=== PATIENT | female | born 1995 | race Caucasian/White ===

== ENCOUNTER 2020-11-13 09:51 | Outpatient (CLI) | payer MEDICAID, SELFPAY ==
--- NOTE | 2020-11-13 10:06 | US_ITS ---
WS: [id number] EARLY OBSTETRICAL ULTRASOUND (<14 WEEKS). HISTORY: SUPERVISION, NORMAL COMPARISON: None available. Single intrauterine gestational sac is identified. Cardiac activity at 176 BPM. [place]-rump length duane sures 1.7 cm which corresponds to a gestation of 8w1d. Normal-appearing yolk sac and amnion demonstra surjit. No subchorionic hemorrhage. Tiny amount of free fluid in the cul-de-sac. Cervix is closed. Thick-walled LEFT ovarian corpus luteum cyst. Thick wall cyst measures 19 x 18 mm. Negative RIGHT ova ry. US/US OB <=14 wk fetus w transvag IMPRESSION: 1. Single intrauterine gestation of 8 weeks 1 day with an EDC of 06/24/2021. 2. Corpus luteum of within the LEFT ovary.
== END 2020-11-13 09:52 | disposition home or self-care (01) ==
LOC: RAD 09:55
PROVIDERS: PCP Family Medicine; Visit Provider Family Medicine
DX: Z34.81 Encounter for supervision of other normal pregnancy, first trimester (principal); Z3A.08 8 weeks gestation of pregnancy
CPT/HCPCS: 76801; 76817

== ENCOUNTER 2021-01-29 08:44 | Outpatient (CLI) | payer MEDICAID, SELFPAY ==
--- NOTE | 2021-01-29 | US_ITS ---
WS: [id number] ULTRASOUND OB COMPLETE TECHNIQUE: Complete ultrasound. Technically difficult examination. CLINICAL INFORMATION: 20 WK ANATOMY COMPARISON: None. FINDINGS: Cervix measures 3.1 cm Single interuterine gestation is identified with breech presentation. Placenta is anterior. Placenta grade 0. Normal amniotic fluid volume. cardiac activity: 147 BPM. AGA: 19w4d MAHENDRA by ultrasound: 06/21/2021 Estimated weight: 313 g., %. BDP: 4.4 cm = 19w2d HC: 16.3 cm = 19w1d AC: 14.1 cm = 19w3d FEMUR LENGTH: 3.3 cm = 20w3d Anatomic survey: profile not well evaluated. Anatomic survey is otherwise normal. Normal stomach. Kidneys and bladder are normal. Normal 3 vessel cord. Normal 3 vessel cord insertion. Normal 4 chamber heart. Normal spine. Intracranial contents are normal. Normal posterior fossa and cisterna magna. US/US OB >= 14 weeks fetus [id number] IMPRESSION: Technically difficult examination. 1. Single intrauterine with visualized cardiac activity. AGA 19w4d w ith MAHENDRA 06/21/2021. 2. Placenta is anterior. Breech presentation. 3. profile not well evaluated. Anatomic survey otherwise normal. 4. Normal amniotic fluid volume.
== END 2021-01-29 08:45 | disposition home or self-care (01) ==
PROVIDERS: PCP Family Medicine; Visit Provider Nurse Practitioner Family
DX: Z36.89 Encounter for other specified antenatal screening (principal); Z3A.20 20 weeks gestation of pregnancy
CPT/HCPCS: 76805

== ENCOUNTER 2021-04-26 17:10 | Outpatient (CLI) | payer MEDICAID, SELFPAY ==
[2021-04-26 17:30] VITALS: BMI 36.2
[2021-04-26 17:31] VITALS: BP 124/89; PULSE 85
[2021-04-26 17:52] VITALS: BP 126/87; PULSE 86
[2021-04-26 18:12] VITALS: BP 119/73; PULSE 82
[2021-04-26 18:40] VITALS: BP 119/73; PULSE 82; RESP 18
== END 2021-04-26 18:30 | disposition home or self-care (01) ==
LOC: OPOB 17:17 → OBGYN 17:22
PROVIDERS: PCP Family Medicine; Visit Provider Family Medicine
DX: O99.891 Other specified diseases and conditions complicating pregnancy (principal); R10.9 Unspecified abdominal pain
CPT/HCPCS: 59025; 99211

== ENCOUNTER 2021-05-24 10:07 | Outpatient (CLI) | payer MEDICAID, SELFPAY ==
--- NOTE | 2021-05-24 10:19 | US_ITS ---
WS: [id number] ULTRASOUND OB LIMITED TECHNIQUE: Limited ultrasound examination of the fetus. CLINICAL INFORMATION: BREECH PRESENTATION/SUPERVISION NORMAL COMPARISON: January 29, 2021 FINDINGS: Cervix measures 3.1 cm. Single interuterine gestation. presentation is breech Placental location is anterior. Placenta grade: 1 heart rate 150 BPM. KEV 10.5 CM. US[place] [id number] IMPRESSION: 1. Cervix is long and closed measuring 3.1 cm. 2. Single intrauterine gestation with breech presentation. Placenta is anterio r. 3. KEV 10.5 cm greater than the fifth and below the median for gestational age .
== END 2021-05-24 10:08 | disposition home or self-care (01) ==
LOC: RAD 10:10
PROVIDERS: PCP Family Medicine; Visit Provider Family Medicine
DX: O32.1XX0 Maternal care for breech presentation, not applicable or unspecified (principal)
CPT/HCPCS: 76816

== ENCOUNTER 2021-05-25 03:46 | Inpatient (IN) | payer MEDICAID, SELFPAY ==
[2021-05-25] VITALS (21 sets, daily range): BP systolic 112–151; BP diastolic 56–94; PULSE 64–79; RESP 15–18; TEMP 36.2–37.9; O2SAT 93–99; BMI 37.8
--- NOTE | 2021-05-25 04:25 | ANES.PREANE2 ---
Pre-Anesthetic Assessment Pre-Anesthetic Assessment: Height/Weight: Height 1.63 m Weight 99.79 kg Temp Pulse BP 97.2 F L 74 134/86 05/25/21 03:38 05/25/21 03:38 05/25/21 03:38 Preop Diagnosis: Breech, ruptured Was Beta Mateo taken within 24 hours: N/A Was Clonidine taken within 24 hours: N/A Social: Social History: No alcohol and No tobacco Exam: Pre-Anes Outpt Exam: alert, oriented x 3, clear to auscultation bilaterally and regular rate & rhythm Airway: Submandibular: WNL Cervical ROM: WNL MP: 2 Dentition: Full History/ROS: No significant history except as noted Pulmonary: Pulmonary: None reported CV/HEM: Comments: Gestational htn : : None reported Hepatic: Hepatic: None reported Metabolic: Metabolic: None reported Musc/skel: Musc/skel: None reported Neuropsych: Neuropsych: None reported Anesthetic Plan: ASA status: 2 Anesthesia: Anesthesia Evaluation and Regional (specify below) Other: Spinal Risk of > 500 ml blood loss (7ml/kg in children): Yes, adequate IV access and fluids planned [facility] Anesthesia Female Reproductive History: : 1 Data Anesthesia Cardiac Studies: No Data to Display
[2021-05-25] MEDS: famotidine 20 mg/2 mL INJ IVP (04:28)
[2021-05-25] MEDS: metoclopramide 5 mg/mL SDV 2 mL 10 MG IVP (04:28)
[2021-05-25] MEDS: citric acid-sodium citrate 30 mL UDC PO (04:28)
[2021-05-25] MEDS: lactated ringers 1,000 ML 999 ML IV (04:28)
--- NOTE | 2021-05-25 04:30 | P.HP_ITS ---
Providers/Chief Complaint Admitting Physician: Teetee Rodas MD Primary Care Provider: Patrick Alexandra MD Chief Complaint: loss of fluid History of Present Illness Roz Rosa is a 25 year old female at 36 weeks 2 days gestation who presented to labor and delivery with spontaneous rupture of membranes. She was known to be previous breech presentation and was rechecked via bedside ultrasound and was still breech presentation. Her was complicated by a history of hypothyroidism for which she took medication at least penitent[facility] through the . She has not been on medication in the past couple months because her levels were almost hyperthyroid. She also had borderline -induced hypertension with a couple in office pressures right around 140. She had a 24- hour urine protein sent out yesterday that is not resulted, but her prior 24- hour urine protein from 05/08 was 208. Review of Systems Const: Denies: fever(s) or chills Eyes: Denies: change in vision ENMT: Denies: throat pain Card: Denies: chest pain, irregular heart rhythm or orthopnea Resp: Denies: dyspnea, productive cough or wheezing GI: Denies: abdominal pain or vomiting : Denies: difficulty voiding Musc: Denies: muscle weakness Skin/Breast: Denies: rash Neuro: Denies: headache(s), numbness in extremities or weakness in extremities Jf/Lymph: Denies: easy bruising or easy bleeding All/Imm: Denies: urticaria or throat swelling Medications/Allergies Home Medications Medication Instructions Recorded Confirmed Last Taken Type 04/26/21 04/25/21 18:00 History Allergies Allergy/AdvReac Type Severity Reaction Status Date / Time No Known Allergies Allergy Verified 04/26/21 18:26 PFSH Acute PFSH: Medical History (Updated 05/25/21 @ 04:41 by Teetee Rodas MD) Hypothyroidism Female Reproductive History: : 1 Other female reproductive history: , MAHENDRA 06/20/21, ICI fertilization with sperm donor She is blood type a positive antibody nonreactive, hepatitis B nonreactive, rubella immune, HIV nonreactive, UDS negative, GBS unknown, Covid unknown. Vitals/I&O/Wt Last Vital Signs Temp 97.2 F L 05/25/21 03:38 Pulse 74 05/25/21 03:38 BP 134/86 05/25/21 03:38 Weight last 48 hrs Weight 99.79 kg Physical Exam Const: COMMON NORMALS: no acute distress and healthy appearing GENERAL APPEARANCE: cooperative and comfortable HENMT: COMMON NORMALS: normocephalic Eye: COMMON NORMALS: Equal, round and reactive pupils present and EOMs intact bilaterally Chest: COMMONS NORMALS: normal inspection of the chest Resp: COMMON NORMALS: normal respiratory effort, No retractions, No use of accessory muscles and clear to auscultation bilaterally Cardio: COMMON NORMALS: regular rate and regular rhythm GI: COMMON NORMALS: Soft to palpation (gravid) and non-tender Extremity: GENERAL: No calf tenderness and No cyanosis Neuro: COMMON NORMALS: patient oriented x3 and moves all extremities Psych: COMMON NORMALS: mental status grossly normal Skin: COMMON NORMALS: no rashes or lesions noted Data : 05/25/21 04:20 A&P Assessment and plan (1) Hypothyroidism: not currently on meds due to low TSH during Status: Acute (2) with 36 completed weeks gestation: Status: Acute (3) Breech presentation: Plan for primary . Risk benefits and alternatives were discussed with the patient in detail. Status: Acute (4) SROM (spontaneous rupture of membranes): Status: Acute (5) induced hypertension: Borderline, not requiring meds. 05/10/21 24 hour urine protein 208. Status: Acute Attestations Medical Necessity Statement*: Routine surgery and postop care Coding Level of Care Code Acute Field Automobile Adjuster for g Fwd Exam Comprehensive Diagnoses Hypothyroidism E03.9 with 36 completed weeks gestation Z3A.36 Breech presentation O32.1XX0 SROM (spontaneous rupture of membranes) induced hypertension O13.9
[2021-05-25 04:55] LABS: Alanine Aminotransferase 12 U/L (0-33); Albumin Level 3.6 g/dL (3.5-5.2); Alkaline Phosphatase 110 IU/L (35-105); Anion Gap 18.6 (5-19); Aspartate Amino Transferase 12 U/L (0-32); Blood Urea Nitrogen 7 mg/dL (6-20); Calcium 8.7 mg/dL (8.5-10.5); Carbon Dioxide 17 mmol/L (22-29); Chloride 102 mmol/L (98-107); Globulin 2.7 g/dL (1.3-4.6); Glomerular Filtration Rate 152.9 mL/min (90-130); Glucose 82 mg/dL (65-115); Osmolality Calculated 275 mOsm/kg (285-295); Potassium 3.6 mmol/L (3.5-5.1); Sodium 134 mmol/L (136-145); Total Bilirubin 0.2 mg/dL (0.15-1.2); Total Protein 6.3 g/dL (6.6-8.7)
[2021-05-25 05:30] LABS: Basophils % 0.3 %; Eosinophils # 0.1 10^3/uL (0.0-0.8); Eosinophils % 1.1 %; Hematocrit 35.2 % (37.0-47.0); Hemoglobin 11.8 g/dL (11.5-15.3); Lymphocytes # 1.9 10^3/uL (0.8-4.8); Lymphocytes % 21.4 %; Mean Corpuscular HGB Conc 33.5 g/dL (30.0-36.0); Mean Corpuscular Hemoglobin 28.7 pg (28.0-34.0); Mean Corpuscular Volume 85.6 fl (81-99); Mean Platelet Volume 11.8 fL (7.4-10.4); Monocytes # 0.8 10^3/uL (0.2-0.9); Monocytes % 8.6 %; Neutrophils # 5.96 10^3/uL (1.8-7.7); Neutrophils % 68.4 %; Nucleated Red Blood Cells % 0 %; Platelet Count 169 10^3/cmm (130-400); Red Blood Count 4.11 10^6/uL (4.1-5.3); White Blood Count 8.7 10^3/uL (4.0-10.0)
--- NOTE | 2021-05-25 05:53 | PM.OP ---
Operative Report Date of procedure: May 25, 2021 Pre-op Diagnosis: IUP at 36 wks2d with SROM in breech presentation Post-op diagnosis: same Procedure Done: Primary low transverse section Via Pfannenstiel skin incision Specimens removed/disposition: Meek breech female weight 5 pounds 1 ounce, 2290 g Pathology: none sent Surgeon: Teetee Rodas MD Anesthesia: Other (Spinal) Estimated blood loss (mL): 200 IV fluids (mL): 1,000 Urine output (mL): 200 Complications: None Condition: stable Disposition: PACU Procedure: After informed consent the patient was taken to the OR where she was given spinal anesthesia. She was then prepped and draped in normal sterile fashion in dorsal supine position with a left lateral tilt. A Pfannenstiel skin incision was made and carried through to the underlying layer of fascia sharply. The fascial incision was then extended laterally using the Mayos. The fascia was grasped with [place] clamps and the underlying rectus muscles were dissected off taking care to avoid injury to the underlying tissue. The peritoneum was entered bluntly using a hemostat. The incision site was manually stretched. The vesicouterine peritoneum was identified and entered sharply using the Metzenbaums. The bladder flap was then created digitally. The bladder blade was reinserted. Uterine incision was made in a transverse fashion in the lower uterine segment. Rupture of membranes was performed digitally with a small amount of clear fluid. The infant was delivered in meek breech presentation using standard breech maneuvers. The infant was suctioned at delivery and had spontaneous cry. The cord was clamped and cut and the was handed to the waiting pediatric nurse. Cord blood was obtained. The placenta was delivered using fundal pressure. The uterus was then exteriorized from the abdomen and a dry sponge was used to clear the uterus of clots and debris. The uterine incision was then repaired using 0 chromic in a running locked fashion. A second layer of the same suture was used in an imbricating manner. Excellent hemostasis was obtained. The uterus was then returned to the abdomen. Irrigation was used to clear the gutters of clots and debris. The peritoneum was then reapproximated using 4-0 Vicryl in a running fashion. The subfascial tissue was inspected for hemostasis and any small bleeders were coagulated using the Bovie. The patient had surprisingly little blood loss. The fascia was then reapproximated using 0 Vicryl in a running fashion. The subcutaneous tissue was then irrigated and any small bleeders were coagulated using the Bovie. The subcutaneous tissue was then reapproximated using 4-0 Vicryl in a running fashion. The skin was then reapproximated using 4-0 Vicryl on a Giuseppe needle. Steri-Strips and a pressure bandage were applied patient went to recovery in good condition. Sponge instrument and needle counts were correct.
[2021-05-25 06:15] LABS: Add Urine Microscopic? NO; Charge for UA Resulting for Rev
[2021-05-25 06:19] LABS: Nitrazine Paper, PH Positive
[2021-05-25 06:25] LABS: Urine Appearance Clear (CLEAR); Urine Color Yellow (Yellow)
[2021-05-25 06:26] LABS: Bilirubin Urine Neg (Negative); Blood Urine Neg (Negative); Glucose Urine UA Norm (Normal); Ketones Urine 1+ (Negative); Leukocyte Esterase Urine Negative (Negative); Nitrate Urine Negative (Negative); Protein Urine Neg (Negative); Specific Gravity, Urine 1.005 (1.005-1.030); Urobilinogen Urine Neg (Negative); pH Urine 7 (5-7)
[2021-05-25 06:41] LABS: Urine Creatinine 46 mg/dL (28-217); Urine Protein Random 8 mg/dL
[2021-05-25 06:47] LABS: UPRO/UCREAT Ratio 0.17 mg/mg CR
[2021-05-25] MEDS: ketorolac 30 mg/mL INJ IVP ×3 (08:37→22:14)
--- NOTE | 2021-05-25 10:09 | PC.NURSE ---
note Assisted mom and her partner to work on . They are still using a nipple shield and some sweet ease to start feeding. They were doing well when I left the room.
--- NOTE | 2021-05-25 10:24 | ANE.PACU2 ---
Inpatient post-anesthesia follow up: Airway intact: Yes Vital signs: Temperature 99.6 F Pulse Rate 67 Respiratory Rate 16 Blood Pressure 134/79 Pulse Oximetry 99 Oxygen Delivery Me thod Room Air Oxygen Flow Rate Fraction of Inspir ed Oxygen Hydration adequate: Yes Nausea and vomiting: No Pain level: 2 Mental status: Baseline
[2021-05-25] MEDS: ondansetron 2 mg/ML SDV 2 mL 4 MG IVP (11:03)
[2021-05-25] MEDS: sodium chloride 0.9% 500 ML 999 ML IV (14:10)
[2021-05-25] MEDS: dextrose 5%-lactated ringers 1,000 ML 125 ML IV (14:55)
[2021-05-25 18:21] LABS: Hematocrit 30.3 % (37.0-47.0); Hemoglobin 10.1 g/dL (11.5-15.3); Mean Corpuscular HGB Conc 33.3 g/dL (30.0-36.0); Mean Corpuscular Hemoglobin 28.9 pg (28.0-34.0); Mean Corpuscular Volume 86.6 fl (81-99); Mean Platelet Volume 10.6 fL (7.4-10.4); Platelet Count 137 10^3/cmm (130-400); Red Cell Distribution Width 13.2 % (12.1-15.1); White Blood Count 10.3 10^3/uL (4.0-10.0)
[2021-05-26 03:13] VITALS: BP 127/77; PULSE 66; TEMP 37.1
[2021-05-26] MEDS: HYDROcodone-acetaminophen 5-325 mg Tablet PO ×3 (08:18→23:28)
[2021-05-26] MEDS: prenatal vitamin Capsule 1 CAP PO (08:18)
[2021-05-26] MEDS: docusate sodium 100 mg Capsule PO ×2 (08:19→18:54)
[2021-05-26 09:30] VITALS: BP 127/71; PULSE 72; RESP 16; TEMP 37.1
--- NOTE | 2021-05-26 11:34 | P.PN_ITS ---
Subjective Subjective: Interval history: Doing well, she is passing flatus we will go ahead and advance her diet to regular. Her pain is improved with the oral medication. Her bleeding has been scant. Vitals/I&O/Wt Last Vital Signs Temp 98.8 F 05/26/21 09:30 Pulse 72 05/26/21 09:30 Resp 16 05/26/21 09:30 BP 127/71 05/26/21 09:30 Pulse Ox 99 05/25/21 06:10 05/25/21 05/26/21 05/26/21 22:59 06:59 14:59 Intake Total 2663.583 / 4013.583 500 / 4513.583 Output Total 200 / 500 1350 / 1850 Balance 2463.583 / 3513.583 -850 / 2663.583 Weight last 48 hrs Weight 99.79 kg Physical Exam HENMT: COMMON NORMALS: normocephalic HEAD & SCALP: normocephalic FACE & SINUS: normal facial exam Chest: COMMONS NORMALS: normal inspection of the chest Resp: COMMON NORMALS: normal respiratory effort and clear to auscultation bilaterally AUSCULTATION: clear to auscultation bilaterally Cardio: COMMON NORMALS: regular rate and regular rhythm RATE: regular rate RHYTHM: regular rhythm GI: COMMON NORMALS: Soft to palpation AUSCULTATION: Yes normoactive bowel sounds PALPATION: Yes Soft to palpation, Yes Tenderness to palpation present (GI) (appropriate post-operative), No Guarding due to palpation present (GI) and No Rigid due to palpation Extremity: GENERAL: No calf tenderness and Yes edema Skin: NARRATIVE SKIN EXAM: inscsion c/d/i with steri-strips in place, no erythema or exudates Urinary Catheter Management^: Rodrigues Latex: Cath Placed During This Visit: yes Urinary Catheter Date of Insertion: 05/25/21 Urinary Catheter Time of Insertion: 04:50 Data : 05/25/21 17:55 05/25/21 04:20 A&P Assessment and plan (1) Status post section: POD 1 doing well, cont routine post-op care Status: Acute (2) induced hypertension: Status: Acute (3) Hypothyroidism: Will need TSH checked 4-8 weeks post delivery. Status: Acute Attestations Medical Necessity Statement*: post-operative care Coding Level of Care Code Acute Software Engineer Backend for Chg Fwd Exam Detailed Diagnoses Status post section Z98.891 induced hypertension O13.9 Hypothyroidism E03.9
[2021-05-26 16:12] VITALS: BP 122/68; PULSE 76; RESP 16; TEMP 36.7; O2SAT 96
[2021-05-26] MEDS: ibuprofen 800 mg tablet PO (18:54)
[2021-05-26 21:00] VITALS: BP 127/79; PULSE 81; RESP 18; TEMP 36.8
[2021-05-27] MEDS: ibuprofen 800 mg tablet PO ×4 (02:18→20:11)
[2021-05-27 06:00] VITALS: BP 126/75; PULSE 73; RESP 18; O2SAT 96
[2021-05-27] MEDS: prenatal vitamin Capsule 1 CAP PO (08:08)
[2021-05-27] MEDS: HYDROcodone-acetaminophen 5-325 mg Tablet PO (08:08)
[2021-05-27] MEDS: docusate sodium 100 mg Capsule PO (08:08)
[2021-05-27 09:15] VITALS: BP 114/70; PULSE 68; RESP 16; TEMP 36.7
--- NOTE | 2021-05-27 12:24 | P.PN_ITS ---
Subjective Subjective: Interval history: Doing well. She was encouraged to get up and walk today. She is afraid to have a bowel movement but feels like she needs to. I suggested timing this with her pain medication administration. Vitals/I&O/Wt Last Vital Signs Temp 98.2 F 05/26/21 21:00 Pulse 73 05/27/21 06:00 Resp 18 05/27/21 06:00 BP 126/75 05/27/21 06:00 Pulse Ox 96 05/27/21 06:00 Physical Exam Const: COMMON NORMALS: no acute distress GENERAL APPEARANCE: cooperative and comfortable Chest: COMMONS NORMALS: normal inspection of the chest Resp: COMMON NORMALS: normal respiratory effort and clear to auscultation bilaterally AUSCULTATION: clear to auscultation bilaterally Cardio: COMMON NORMALS: regular rate and regular rhythm RATE: regular rate RHYTHM: regular rhythm GI: COMMON NORMALS: Soft to palpation (Incision clean dry and intact) and non- tender PALPATION: Yes Soft to palpation (Incision clean dry and intact) Extremity: GENERAL: No calf tenderness and Yes edema Urinary Catheter Management^: Rodrigues Latex: Cath Placed During This Visit: yes Urinary Catheter Date of Insertion: 05/25/21 Urinary Catheter Time of Insertion: 04:50 Data : 05/25/21 17:55 05/25/21 04:20 A&P Assessment and plan (1) Status post section: Postop day #2 doing well. will need to stay overnight for blood sugar purposes. Mother prefers to stay inpatient Status: Acute (2) induced hypertension: Resolved. Was borderline and did not require meds. Status: Acute (3) Hypothyroidism: Will need follow-up Status: Acute Attestations Medical Necessity Statement*: postoperative care Coding Level of Care Code Acute Agricultural Specialist for Chg Fwd Diagnoses Status post section Z98.891 induced hypertension O13.9 Hypothyroidism E03.9
[2021-05-27 15:15] VITALS: BP 130/81; PULSE 66; RESP 16; TEMP 36.8
--- NOTE | 2021-05-27 21:26 | PC.NURSE ---
Patient refused linen change.
--- NOTE | 2021-05-27 21:27 | PC.NURSE ---
Linen change offered, patient refused.
[2021-05-27 22:26] VITALS: BP 127/77; PULSE 60; TEMP 36.9
[2021-05-28] MEDS: acetaminophen 325 mg Tablet 650 MG PO (00:37)
[2021-05-28 04:58] VITALS: BP 121/66; PULSE 61; TEMP 36.7
[2021-05-28] MEDS: prenatal vitamin Capsule 1 CAP PO (10:16)
[2021-05-28] MEDS: ibuprofen 800 mg tablet PO ×2 (10:16→16:00)
[2021-05-28] MEDS: docusate sodium 100 mg Capsule PO (10:17)
[2021-05-28] MEDS: HYDROcodone-acetaminophen 5-325 mg Tablet PO (12:34)
--- NOTE | 2021-05-28 17:14 | P.DS_ITS ---
Discharge Providers Date of Admission: 05/25/21 03:46 Date of Discharge: May 28, 2021 Attending Provider at Admission: Teetee Rodas MD Attending Provider at Discharge: Teetee Rodas MD Primary Care Provider: Patrick Alexandra MD Diagnoses at Discharge Discharge Diagnosis (1) Status post section: Status: Acute (2) induced hypertension: Status: Acute (3) Hypothyroidism: Status: Acute Reason for Visit Reason for Visit: loss of fluid Hospital Course Hospital Course This is a 25-year-old G1 now P1 who presented to labor and delivery at 36 weeks 2 days gestation with spontaneous rupture of membranes. The infant was breech presentation so she was taken for primary section. Mother and did well after the section. Mother was ambulating, tolerating a regular diet, had good pain control and was comfortable with discharge home on postop day #3 Physical Exam Narrative: EXAM NARRATIVE: Alert and oriented sitting in bed holding baby, lungs clear to auscultation bilaterally, heart regular rate and rhythm no murmurs, abdomen is soft not particularly tender, fundus is firm U- 2, incision is clean dry and intact with Steri-Strips in place. No calf tenderness, nonpitting edema Urinary Catheter Management^: Rodrigues Latex: Cath Placed During This Visit: yes Urinary Catheter Date of Insertion: 05/25/21 Urinary Catheter Time of Insertion: 04:50 Discharge Data Vitals: Last Vital Signs Temp 98.0 F 05/28/21 04:58 Pulse 61 05/28/21 04:58 Resp 16 05/27/21 15:15 BP 121/66 05/28/21 04:58 Pulse Ox 96 05/27/21 06:00 Discharge Plan Discharge Patient Disposition: Home Condition: Stable Prescriptions: New hydrocodone-acetaminophen 5-325 mg Tablet 1 - 2 tab PO Q4H PRN (Reason: Moderate To Severe Pain) Qty: 10 RF: 0 docusate sodium 100 mg Capsule 100 mg PO BID Qty: 60 RF: 0 ibuprofen 800 mg Tablet 800 mg PO TID PRN (Reason: Abdominal Discomfort) Qty: 30 RF: 0 Continued RF: 0 Discharge Orders: Discharge Order (Routine); Ordered 05/28/21 Ordered By: Teetee Rodas Referrals: Patrick Alexandra MD [Primary Care Provider] - 1-3 days Discharge Diet: Usual diet Discharge Activity: Limit activity as instructed Patient Instructions: Depression (DC), Bleeding (DC), Preeclampsia and Eclampsia After Delivery (GEN), OB - Primo/Clark, OB Discharge Report, OB Food/Drug Interaction Guide, Opioid Safety, OB Postpart um Home Care Discharge Attestations Time Spent in Discharge Care*: less than 30 min Quality Metrics Clinical Quality Measures During this hospital stay, did patient experience: None Coding Level of Care Code Acute Chg FW DC note Diagnoses Status post section Z98.891 induced hypertension O13.9 Hypothyroidism E03.9
[2021-05-28 21:04] VITALS: BP 138/74; PULSE 74; RESP 18; TEMP 36.9
[2021-05-28 21:20] VITALS: BP 138/74; PULSE 74; RESP 18; TEMP 36.9
== END 2021-05-28 21:06 | disposition home or self-care (01) | DRG 788 ==
LOC: OPOB 03:53 → OBGYN 03:53
PROVIDERS: Admitting Provider Family Medicine; PCP Family Medicine; Visit Provider Family Medicine
PROC: 10D00Z1 Extraction of Products of Conception, Low, Open Approach (ICD-10-PCS; CPT 59514; principal; 2021-05-25 04:40)
DX: O32.1XX0 Maternal care for breech presentation, not applicable or unspecified (principal); O99.284 Endocrine, nutritional and metabolic diseases complicating childbirth; E03.9 Hypothyroidism, unspecified; O13.4 Gestational [pregnancy-induced] hypertension without significant proteinuria, complicating childbirth; Z3A.36 36 weeks gestation of pregnancy; Z37.0 Single live birth
CPT/HCPCS: 36415; 51702; 59025; 59409; 80053; 81003; 82570; 83986; 84156; 85025; 85027; 96374; 96376; 98960; 99211; J0690; J1200; J1885; J2274; J2405; J2765; J3010; J3490; J7030; J7040

== ENCOUNTER → 2021-10-23 12:17 | Outpatient (BNVA) | payer MEDICAID, SELFPAY | PROVIDERS: PCP Family Medicine; Visit Provider Family Medicine | DX: Z00.00 Encounter for general adult medical examination without abnormal findings (principal); Z13.220 Encounter for screening for lipoid disorders; Z13.1 Encounter for screening for diabetes mellitus; E03.9 Hypothyroidism, unspecified | CPT/HCPCS: 80053; 80061; 83036; 84439; 84443; 85025; 88175 ==

== ENCOUNTER → 2021-12-31 15:03 | Outpatient (BNVA) | payer SELFPAY | PROVIDERS: PCP Family Medicine; Visit Provider Family Medicine | DX: Z00.00 Encounter for general adult medical examination without abnormal findings (principal); Z13.220 Encounter for screening for lipoid disorders; Z13.6 Encounter for screening for cardiovascular disorders; Z13.1 Encounter for screening for diabetes mellitus; E03.9 Hypothyroidism, unspecified | CPT/HCPCS: 80053; 80061; 83036; 84439; 84443; 85025 ==

== ENCOUNTER → 2022-08-26 10:31 | Outpatient (BNVA) | payer SELFPAY | PROVIDERS: PCP Family Medicine; Visit Provider Family Medicine | DX: E03.9 Hypothyroidism, unspecified (principal) | CPT/HCPCS: 84439; 84443 ==

== ENCOUNTER → 2023-08-28 12:54 | Outpatient (BNVA) | payer SELFPAY | PROVIDERS: PCP Family Medicine; Visit Provider Family Medicine | DX: Z51.81 Encounter for therapeutic drug level monitoring (principal); Z13.220 Encounter for screening for lipoid disorders; R73.09 Other abnormal glucose; E03.9 Hypothyroidism, unspecified | CPT/HCPCS: 80053; 80061; 83036; 84439; 84443; 85025 ==

== ENCOUNTER → 2025-01-31 11:33 | Outpatient (BNVA) | payer SELFPAY | PROVIDERS: PCP Family Medicine; Visit Provider Family Medicine | DX: Z00.00 Encounter for general adult medical examination without abnormal findings (principal); E03.9 Hypothyroidism, unspecified; Z13.6 Encounter for screening for cardiovascular disorders; R73.09 Other abnormal glucose; Z51.81 Encounter for therapeutic drug level monitoring; E55.9 Vitamin D deficiency, unspecified | CPT/HCPCS: 80053; 80061; 82306; 83036; 84439; 84443; 85025; 87624 ==